=== PATIENT | female | born 1950 | race Two or more races ===

== ENCOUNTER 2021-11-23 08:00 | Inpatient (IN) | payer OTHER ==
[~2021-11-23] VITALS: Ht 160 cm; Wt 70.3 kg
[2021-11-23] MEDS ORDERED: SYNTHROID75 MCG PO (10:06)
[2021-11-23] MEDS ORDERED: [UNRECOGNIZED DRUG - OTHER] PO (10:08)
[2021-11-23] MEDS ORDERED: METHOTREXATE2.5 MG PO (10:08)
[2021-11-28] MEDS ORDERED: PRAZOSIN HCL1 MG (11:14)
[2021-11-28] MEDS ORDERED: ZOLPIDEM TARTRA10 MG (11:14)
[2021-11-28] MEDS ORDERED: ARTHRITIS PAIN650 MG (11:14)
[2021-11-28] MEDS ORDERED: PEPTO-BISM262 MG/15 (11:14)
[2021-11-28] MEDS ORDERED: GABAPENTIN300 M2 (11:14)
[2021-11-28] MEDS ORDERED: FOLIC ACID1 MG (11:14)
[2021-11-28] MEDS ORDERED: PANTOPRAZOLE SO40 MG (11:14)
[2021-11-28] MEDS ORDERED: REFRESH RELIEVA10 ML (11:14)
[2021-11-28] MEDS ORDERED: ATORVASTATIN CA10 MG (11:15)
[2021-11-28] MEDS ORDERED: ESCITALOPRAM OX10 MG (11:15)
[2021-11-28] MEDS ORDERED: SERTRALINE HCL50 MG (11:15)
[2021-11-28] MEDS ORDERED: LATANOPROST2.5 ML (11:15)
[2021-11-28] MEDS ORDERED: RINVOQ30 MG (11:18)
[2021-12-01] MEDS ORDERED: ELIQUIS2.5 MG PO (11:57)
== END 2021-12-01 14:16 | disposition home or self-care (01) | DRG 470 ==
LOC: SURG 11-28 06:42 → O/R 11-28 06:42 → SURG 11-28 08:00 → MEDJ 11-29 16:40
PROVIDERS: ADMIT Orthopaedic Surgery; ATTEND Orthopaedic Surgery
PROC: 0SRD0J9 Replacement of Left Knee Joint with Synthetic Substitute, Cemented, Open Approach (ICD-10-PCS; principal; 2021-11-28 16:45)
DX: M17.12 Unilateral primary osteoarthritis, left knee (principal); M22.12 Recurrent subluxation of patella, left knee; E03.8 Other specified hypothyroidism; Z20.822 Contact with and (suspected) exposure to COVID-19; J45.998 Other asthma

== ENCOUNTER 2024-02-20 08:00 | Inpatient (IN) | payer OTHER ==
[~2024-02-20] VITALS: Ht 160 cm; Wt 65.8 kg
[~2024-02-20 08:00] MED LIST: ARTHRITIS PAIN650 MG; ATORVASTATIN CA10 MG; ELIQUIS2.5 MG PO; ESCITALOPRAM OX10 MG; FOLIC ACID1 MG; GABAPENTIN300 M2; LATANOPROST2.5 ML; METHOTREXATE2.5 MG PO; PANTOPRAZOLE SO40 MG; PEPTO-BISM262 MG/15; PRAZOSIN HCL1 MG; REFRESH RELIEVA10 ML; RINVOQ30 MG; SERTRALINE HCL50 MG; SYNTHROID75 MCG PO; ZOLPIDEM TARTRA10 MG; [UNRECOGNIZED DRUG - OTHER] PO
[2024-02-20] MEDS ORDERED: METHOTREXA25 MG/1 M5 SUBCUTANEO (10:26)
[2024-02-20 11:11] LABS: URINE BACTERIA 167.5 uL (0.0-1933); URINE EPITHELIAL CELLS 6.3 uL (0.0-38.8); URINE RBC 39.8 uL (0.0-20.8); URINE WBC 15.2 uL (0.0-23.2)
[2024-02-20 11:23] LABS: HEMATOCRIT 32.3 % (36.0-45.00); HEMOGLOBIN 11.1 g/dL (12.0-15.00); MEAN CELL VOLUME 104.4 fL (80.00-100.00); MEAN CORPUSCULAR HEMOGLOBIN 35.9 pg (27.00-32.0); MEAN CORPUSCULAR HGB CONC 34.4 g/dl (32.0-36.0); PLATELET COUNT 223 K/uL (150-450); RED BLOOD COUNT 3.09 M/uL (4.00-6.00); RED CELL DISTRIBUTION WIDTH 15.6 % (11.5-14.5)
[2024-02-20 11:47] LABS: INR 1.09; PARTIAL THROMBOPLASTIN TIME 29.3 SECONDS (22.0-34.0); PROTHROMBIN TIME 11.4 SECONDS (9.0-11.5)
[2024-02-20 12:00] LABS: ALBUMIN 3.5 gm/dL (3.4-5.0); BILIRUBIN TOTAL 0.46 mg/dL (0.3-1.2); CALCIUM 8.8 mg/dL (8.5-10.1); CREATININE SERUM 0.97 mg/dL (0.55-1.02); GFR 56.29; GLOBULINA 3.3 G/DL (2.4-3.5); POTASSIUM 4.48 mEq/L (3.5-5.1); TOTAL PROTEIN 6.8 gm/dL (6.4-8.2)
[2024-02-20 12:20] LABS: URINE APPEARANCE Clear; URINE BILIRRUBIN Negative (NEGATIVE); URINE BLOOD Small; URINE COLOR Yellow; URINE GLUCOSE Negative (NEGATIVE); URINE LEUKOCYTE Trace; URINE NITRATE Negative; URINE PROTEIN Negative (NEGATIVE); URINE UROBILINOGEN 0.2 E.U./dl
[2024-02-25] MEDS ORDERED: MAXIMUM D3325 MCG (10:57)
[2024-02-25] MEDS ORDERED: OMEGA-3 ACID ETH1 GM (10:57)
[2024-02-25] MEDS ORDERED: RESTORIL15 MG (10:57)
[2024-02-25] MEDS ORDERED: SYNTHROID50 MCG (10:57)
[2024-02-25] MEDS ORDERED: POVIDONE-IODINE 3 EA MED..SWAB TOP ONE (14:30)
[2024-02-25] MEDS ORDERED: KETOROLAC TROMETHAMINE 60 MG VIAL IM NR (14:30)
[2024-02-25] MEDS ORDERED: MORPHINE SULFATE 4 MG/ML CARTRIDGE IV ONE (14:30)
[2024-02-25] MEDS ORDERED: CEFAZOLIN SODIUM 1,000 MG VIAL IV SCH ×2 (14:30→17:00)
[2024-02-25] MEDS ORDERED: VANCOMYCIN HCL 1,000 MG VIAL IR ONE (15:15)
[2024-02-25] MEDS ORDERED: TRANEXAMIC ACID 100MG/1ML (1000MG) AMPUL IV ONE (15:15)
[2024-02-25] MEDS ORDERED: TRANEXAMIC ACID 100MG/1ML (1000MG) AMPUL IV NR (15:15)
[2024-02-25] MEDS ORDERED: SODIUM CHLORIDE 0.45 % 1,000 ML IV SCH (16:00)
[2024-02-25] MEDS ORDERED: MORPHINE SULFATE 4 MG/ML CARTRIDGE IV PRN (16:00)
[2024-02-25] MEDS ORDERED: ONDANSETRON HCL 2 MG/ML VIAL IV PRN (16:00)
[2024-02-25] MEDS ORDERED: OxyCODONE HCL 5 MG TABLET (ROXICODONE) PO PRN (16:00)
[2024-02-25] MEDS ORDERED: GABAPENTIN 300 MG CAPSULE PO SCH (17:00)
[2024-02-25] MEDS ORDERED: ACETAMINOPHEN 500 MG GEL..CAP PO SCH (18:00)
[2024-02-26] MEDS ORDERED: LEVOTHYROXINE SODIUM 75 MCG TABLET PO SCH (06:00)
[2024-02-26 07:01] LABS: HEMATOCRIT 28.6 % (36.0-45.00); HEMOGLOBIN 9.9 g/dL (12.0-15.00); MEAN CELL VOLUME 104.4 fL (80.00-100.00); MEAN CORPUSCULAR HGB CONC 34.5 g/dl (32.0-36.0); PLATELET COUNT 181 K/uL (150-450); RED BLOOD COUNT 2.74 M/uL (4.00-6.00); RED CELL DISTRIBUTION WIDTH 15.7 % (11.5-14.5)
[2024-02-26] MEDS ORDERED: ELIQUIS2.5 MG PO (07:53)
[2024-02-26] MEDS ORDERED: CEFADROXIL500 MG PO (07:53)
[2024-02-26] MEDS ORDERED: PERCOCET 5-3251 EACH PO (07:53)
[2024-02-26] MEDS ORDERED: APIXABAN 2.5 MG TABLET PO SCH ×3 (09:00→17:00)
[2024-02-26] MEDS ORDERED: SENNOSIDES 1 TAB TABLET PO SCH (09:00)
[2024-02-26] MEDS ORDERED: VITAMIN B COMPLEX 1 EACH PO SCH (17:00)
[2024-02-26] MEDS ORDERED: Cyanocobalamin/Mecobalamin 1 TAB.SL SL SCH (17:00)
[2024-02-26] MEDS ORDERED: SOD FERRIC GLUC COMPLX/SUCROSE 62.5 MG/5 ML AMPUL IV SCH (17:00)
[2024-02-27 07:50] LABS: MEAN CELL VOLUME 104.9 fL (80.00-100.00); MEAN CORPUSCULAR HEMOGLOBIN 36.4 pg (27.00-32.0); MEAN CORPUSCULAR HGB CONC 34.6 g/dl (32.0-36.0); PLATELET COUNT 175 K/uL (150-450); RED BLOOD COUNT 2.76 M/uL (4.00-6.00); RED CELL DISTRIBUTION WIDTH 15.7 % (11.5-14.5)
[2024-02-27] MEDS ORDERED: IRON FUM,PS/FOLIC ACID/VITC/B3 1 CAP CAPSULE PO SCH (09:00)
== END 2024-02-27 14:30 | disposition designated cancer center or children's hospital (05) | DRG 470 ==
LOC: OB/GYN 02-25 06:25 → O/R 02-25 06:25 → SURH 02-25 08:00 → O/R 02-25 16:11 → OB/GYN 02-25 16:14 → SURG 02-25 16:14 → SURH 02-25 20:15 → OB/GYN 02-27 14:30
PROVIDERS: ADMIT Orthopaedic Surgery; ATTEND Orthopaedic Surgery
PROC: 0MNN0ZZ Release Right Knee Bursa and Ligament, Open Approach (ICD-10-PCS; 2024-02-25)
PROC: 0SUC07Z Supplement Right Knee Joint with Autologous Tissue Substitute, Open Approach (ICD-10-PCS; 2024-02-25)
PROC: 0SRC0JZ Replacement of Right Knee Joint with Synthetic Substitute, Open Approach (ICD-10-PCS; principal; 2024-02-25 20:15)
DX: M17.11 Unilateral primary osteoarthritis, right knee (principal); D62 Acute posthemorrhagic anemia; M22.11 Recurrent subluxation of patella, right knee